=== PATIENT | female | born 2000 | race Two or more races ===

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

== ENCOUNTER 2023-10-17 14:26 | Emergency (ER) | payer OTHER ==
[~2023-10-17] VITALS: Ht 172.7 cm; Wt 65.8 kg
[2023-10-17] MEDS ORDERED: GUAIFENESIN/DEXTROMETHORPHAN 100 MG/5 ML ML PO ONE (16:30)
[2023-10-17 16:47] LABS: HEMOGLOBIN 13.4 g/dL (12.0-15.00); MEAN CELL VOLUME 95.9 fL (80.00-100.00); MEAN CORPUSCULAR HEMOGLOBIN 32.8 pg (27.00-32.0); MEAN CORPUSCULAR HGB CONC 34.3 g/dl (32.0-36.0); PLATELET COUNT 346 K/uL (150-450); RED BLOOD COUNT 4.07 M/uL (4.00-6.00); RED CELL DISTRIBUTION WIDTH 12.5 % (11.5-14.5)
[2023-10-17] MEDS ORDERED: ZITHROMAX500 MG PO (18:02)
== END 2023-10-17 18:09 | disposition home or self-care (01) ==
LOC: ER 14:27
PROVIDERS: Nurse Practitioner Family
DX: J06.9 Acute upper respiratory infection, unspecified (principal); Z20.822 Contact with and (suspected) exposure to COVID-19

== ENCOUNTER 2025-03-18 14:52 | Emergency (ER) | payer OTHER ==
[~2025-03-18] VITALS: Ht 172.7 cm; Wt 65.8 kg
[~2025-03-18 14:52] MED LIST: ZITHROMAX500 MG PO
[2025-03-18] MEDS ORDERED: KETOROLAC TROMETHAMINE 30 MG VIAL IM ONE (15:30)
[2025-03-18] MEDS ORDERED: ONDANSETRON HCL 2 MG/ML VIAL IM ONE (15:30)
[2025-03-18] MEDS ORDERED: CEFTRIAXONE SODIUM 1,000 MG VIAL IM ONE (15:30)
[2025-03-18 16:08] LABS: BASO % 0.6 % (0.1-1.2); EOS # 0.10 (0.04-0.54); EOS % 2.2 % (0.7-7.0); LYMPH # 0.74 (1.18-3.74); LYMPH % 16.0 % (19.3-53.1); MEAN PLATELET VOLUME 10.20 fl (9.4-12.4); MONO # 0.56 (0.24-0.82); NEUT # 3.19 (1.56-6.13); NEUT % 68.9 % (34.0-71.1); RED CELL DISTRIBUTION WIDTH 11.9 % (11.6-14.4)
[2025-03-18 16:11] LABS: MONO % 12.1 % (4.7-12.5)
[2025-03-18 17:08] LABS: COVID-19 AG NEGATIVE (NEGATIVE)
== END 2025-03-19 18:23 | disposition home or self-care (01) ==
LOC: ER 14:52
PROVIDERS: General Practice
DX: B34.9 Viral infection, unspecified (principal); Z20.822 Contact with and (suspected) exposure to COVID-19; Z87.09 Personal history of other diseases of the respiratory system